=== PATIENT | male | born 1945 | race Two or more races ===

== ENCOUNTER 2022-02-23 11:47 | Emergency (ER) | payer OTHER ==
[~2022-02-23] VITALS: Ht 175.3 cm; Wt 62.6 kg
[2022-02-23] MEDS ORDERED: NORFLEX100MG PO (15:52)
[2022-02-23] MEDS ORDERED: KETO10TA2 PO (15:52)
== END 2022-02-23 15:58 | disposition home or self-care (01) ==
LOC: ER 11:47
DX: M25.551 Pain in right hip (principal)

== ENCOUNTER 2022-05-16 09:33 | Outpatient (CLI) | payer OTHER ==
[~2022-05-16 09:33] MED LIST: KETO10TA2 PO; NORFLEX100MG PO
== END 2022-05-16 09:34 | disposition home or self-care (01) ==
LOC: LAB 09:33
PROVIDERS: ATTEND Ophthalmology
DX: Z03.818 Encounter for observation for suspected exposure to other biological agents ruled out (principal); Z20.822 Contact with and (suspected) exposure to COVID-19; Z20.828 Contact with and (suspected) exposure to other viral communicable diseases

== ENCOUNTER 2022-06-29 08:02 | Outpatient (CLI) | payer OTHER | END 2022-06-29 08:03 | disposition home or self-care (01) | LOC: LAB 08:02 | PROVIDERS: ATTEND Ophthalmology | DX: Z20.818 Contact with and (suspected) exposure to other bacterial communicable diseases (principal); Z20.822 Contact with and (suspected) exposure to COVID-19 ==

== ENCOUNTER 2022-07-25 10:58 | Emergency (ER) | payer OTHER ==
[~2022-07-25] VITALS: Ht 175.3 cm; Wt 61.2 kg
== END 2022-07-25 13:31 | disposition home or self-care (01) ==
LOC: ER 10:58
DX: B34.8 Other viral infections of unspecified site (principal)

== ENCOUNTER 2022-08-04 07:16 | Outpatient (CLI) | payer OTHER | END 2022-08-04 15:35 | disposition home or self-care (01) | LOC: LAB 07:16 | PROVIDERS: ATTEND Ophthalmology | DX: Z03.818 Encounter for observation for suspected exposure to other biological agents ruled out (principal); Z20.822 Contact with and (suspected) exposure to COVID-19; Z20.828 Contact with and (suspected) exposure to other viral communicable diseases ==

== ENCOUNTER 2022-09-12 13:33 | Outpatient (CLI) | payer OTHER | END 2022-09-12 13:40 | disposition home or self-care (01) | LOC: LAB 13:33 | PROVIDERS: ATTEND Ophthalmology | DX: Z03.818 Encounter for observation for suspected exposure to other biological agents ruled out (principal); Z20.822 Contact with and (suspected) exposure to COVID-19 ==

== ENCOUNTER 2023-01-08 06:16 | Day surgery (SDC) | payer OTHER ==
[~2023-01-08] VITALS: Ht 175.3 cm; Wt 61.2 kg
== END 2023-01-08 13:35 | disposition home or self-care (01) ==
LOC: CIR.AMB 06:16
PROVIDERS: ATTEND Urology
DX: T83.192A Other mechanical complication of indwelling ureteral stent, initial encounter (principal); N13.39 Other hydronephrosis; Z20.822 Contact with and (suspected) exposure to COVID-19; Z88.0 Allergy status to penicillin; F17.210 Nicotine dependence, cigarettes, uncomplicated

== ENCOUNTER 2023-02-09 12:55 | Outpatient (CLI) | payer OTHER | END 2023-02-09 12:59 | disposition home or self-care (01) | LOC: NUCLEAR 12:55 | PROVIDERS: ATTEND Urology | DX: N13.1 Hydronephrosis with ureteral stricture, not elsewhere classified (principal) | CPT/HCPCS: 78708; A9539 ==

== ENCOUNTER → 2023-02-10 08:18 | Outpatient (CLI) | payer OTHER | END | disposition home or self-care (01) | LOC: LAB 08:18 | PROVIDERS: ATTEND Urology | DX: N30.00 Acute cystitis without hematuria (principal) ==

== ENCOUNTER 2023-03-15 07:19 | Outpatient (CLI) | payer OTHER | END 2023-03-15 07:41 | disposition home or self-care (01) | LOC: LAB 07:19 | PROVIDERS: ATTEND Urology | DX: N30.00 Acute cystitis without hematuria (principal) ==

== ENCOUNTER 2023-11-17 07:17 | Outpatient (CLI) | payer OTHER | END 2023-11-17 07:24 | disposition home or self-care (01) | LOC: TOM 07:17 | PROVIDERS: ATTEND Urology | DX: R31.0 Gross hematuria (principal) | CPT/HCPCS: 74177; Q9965 ==

== ENCOUNTER 2023-11-19 05:30 | Day surgery (SDC) | payer OTHER ==
[2023-11-16 13:28] LABS: HEMOGLOBIN 13.5 g/dL (13-16.00); MEAN CELL VOLUME 108.2 fL (80.0-100.00); MEAN CORPUSCULAR HEMOGLOBIN 36.4 pg (27.00-32.0); MEAN CORPUSCULAR HGB CONC 33.7 g/dl (32.0-36.0); PLATELET COUNT 190 K/uL (150-450); RED CELL DISTRIBUTION WIDTH 14.3 % (11.5-14.5)
[2023-11-16 13:36] LABS: PH,URINE 5.5 (5.0-8.0); URINE APPEARANCE Cloudy; URINE BILIRRUBIN Negative (NEGATIVE); URINE BLOOD Large; URINE COLOR Dark Yellow; URINE GLUCOSE Negative (NEGATIVE); URINE LEUKOCYTE Trace; URINE NITRATE Negative
[2023-11-16 13:38] LABS: URINE BACTERIA 18.8 uL (0.0-1933); URINE EPITHELIAL CELLS 3.8 uL (0.0-38.8); URINE RBC 215.2 uL (0.0-20.8); URINE WBC 23.4 uL (0.0-23.2)
[2023-11-16 13:56] LABS: CALCIUM 9.9 mg/dL (8.5-10.1); CREATININE SERUM 1.14 mg/dL (0.70-1.30); GFR 62.45; POTASSIUM 4.48 mEq/L (3.5-5.1)
[2023-11-16 13:59] LABS: URINE PROTEIN 100 (NEGATIVE)
[2023-11-16 14:26] LABS: INR 1.1; PARTIAL THROMBOPLASTIN TIME 28.9 SECONDS (22.0-34.0); PROTHROMBIN TIME 11.5 SECONDS (9.0-11.5)
== END 2023-11-19 12:10 | disposition home or self-care (01) ==
LOC: CIR.AMB 05:30
PROVIDERS: ATTEND Urology
DX: N13.0 Hydronephrosis with ureteropelvic junction obstruction (principal); Z88.0 Allergy status to penicillin; Z20.822 Contact with and (suspected) exposure to COVID-19

== ENCOUNTER 2023-12-14 12:38 | Emergency (ER) | payer OTHER ==
[~2023-12-14] VITALS: Ht 175.3 cm; Wt 59.0 kg
[2023-12-14 14:52] LABS: PH,URINE 6.5 (5.0-8.0); URINE APPEARANCE Clear; URINE BILIRRUBIN Negative (NEGATIVE); URINE BLOOD Moderate; URINE COLOR Yellow; URINE GLUCOSE Negative (NEGATIVE); URINE LEUKOCYTE Moderate; URINE NITRATE Negative; URINE PROTEIN 30 (NEGATIVE)
[2023-12-14 14:57] LABS: URINE BACTERIA 60.4 uL (0.0-1933); URINE EPITHELIAL CELLS 6.6 uL (0.0-38.8); URINE RBC 72.7 uL (0.0-20.8); URINE WBC 124.4 uL (0.0-23.2)
[2023-12-14 14:58] LABS: HEMOGLOBIN 12.7 g/dL (13-16.00); MEAN CELL VOLUME 107.3 fL (80.0-100.00); MEAN CORPUSCULAR HEMOGLOBIN 36.8 pg (27.00-32.0); MEAN CORPUSCULAR HGB CONC 34.3 g/dl (32.0-36.0); PLATELET COUNT 210 K/uL (150-450); RED BLOOD COUNT 3.45 M/uL (4.00-6.00); RED CELL DISTRIBUTION WIDTH 13.1 % (11.5-14.5)
[2023-12-14 15:20] LABS: ALBUMIN 2.9 gm/dL (3.4-5.0); BILIRUBIN TOTAL 0.49 mg/dL (0.3-1.2); CALCIUM 8.7 mg/dL (8.5-10.1); CREATININE SERUM 1.29 mg/dL (0.70-1.30); GFR 54.15; POTASSIUM 3.66 mEq/L (3.5-5.1); TOTAL PROTEIN 6.9 gm/dL (6.4-8.2)
== END 2023-12-14 17:47 | disposition home or self-care (01) ==
LOC: ER 12:38
PROVIDERS: General Practice
DX: N39.0 Urinary tract infection, site not specified (principal); R53.1 Weakness; J40 Bronchitis, not specified as acute or chronic; Z88.0 Allergy status to penicillin; Z20.822 Contact with and (suspected) exposure to COVID-19

== ENCOUNTER 2024-09-11 10:58 | Outpatient (CLI) | payer OTHER ==
[2024-09-11 12:27] LABS: CREATININE SERUM 1.19 mg/dL (0.70-1.30)
== END 2024-09-11 11:01 | disposition home or self-care (01) ==
LOC: LAB 10:58
PROVIDERS: ATTEND Radiology Diagnostic Radiology
DX: N30.00 Acute cystitis without hematuria (principal)

== ENCOUNTER → 2024-09-12 07:05 | Outpatient (CLI) | payer OTHER ==
[2024-09-12 07:51] LABS: URINE BACTERIA 246.9 uL (0.0-1933); URINE EPITHELIAL CELLS 2.4 uL (0.0-38.8); URINE RBC 8.3 uL (0.0-20.8); URINE WBC 1133.8 uL (0.0-23.2)
[2024-09-12 07:59] LABS: PH,URINE 5.5 (5.0-8.0); URINE APPEARANCE Clear; URINE BILIRRUBIN Negative (NEGATIVE); URINE BLOOD Small; URINE COLOR Yellow; URINE GLUCOSE Negative (NEGATIVE); URINE KETONE Trace (NEGATIVE); URINE LEUKOCYTE Moderate; URINE NITRATE Negative; URINE PROTEIN 30 (NEGATIVE)
[2024-09-12 08:01] LABS: URINE CAST 0.15 uL (0.0-1.40)
[2024-09-12 08:28] LABS: CALCIUM 9.5 mg/dL (8.5-10.1); CREATININE SERUM 1.22 mg/dL (0.70-1.30); GFR 57.6; POTASSIUM 4.37 mEq/L (3.5-5.1); PROSTATIC SPECIFIC ANTIGEN 1.68 NG/ML (0.010-4.00)
== END | disposition home or self-care (01) ==
LOC: LAB 07:05
PROVIDERS: ATTEND Urology
DX: R31.1 Benign essential microscopic hematuria (principal); N30.00 Acute cystitis without hematuria; R97.20 Elevated prostate specific antigen [PSA]

== ENCOUNTER 2024-09-12 07:43 | Outpatient (CLI) | payer OTHER | END 2024-09-12 08:04 | disposition home or self-care (01) | LOC: RAD 07:43 | PROVIDERS: ATTEND Urology | DX: R91.1 Solitary pulmonary nodule (principal); L04.0 Acute lymphadenitis of face, head and neck; H53.2 Diplopia; N31.1 Reflex neuropathic bladder, not elsewhere classified; N20.0 Calculus of kidney ==

== ENCOUNTER 2024-10-02 13:58 | Emergency (ER) | payer OTHER ==
[~2024-10-02] VITALS: Ht 175.3 cm; Wt 63.5 kg
[2024-10-02 18:28] LABS: PH,URINE 5.5 (5.0-8.0); URINE APPEARANCE Clear; URINE BILIRRUBIN Negative (NEGATIVE); URINE BLOOD Trace; URINE COLOR Yellow; URINE GLUCOSE Negative (NEGATIVE); URINE KETONE 15 (NEGATIVE); URINE LEUKOCYTE Small; URINE NITRATE Negative
[2024-10-02 18:32] LABS: URINE BACTERIA 729.5 uL (0.0-1933); URINE EPITHELIAL CELLS 10.3 uL (0.0-38.8); URINE RBC 4.5 uL (0.0-20.8); URINE WBC 302.3 uL (0.0-23.2)
[2024-10-02 18:33] LABS: URINE CAST 0.91 uL (0.0-1.40); URINE PROTEIN 100 (NEGATIVE)
[2024-10-02 19:07] LABS: HEMATOCRIT 38.4 % (39.0-48.0); HEMOGLOBIN 13.2 g/dL (13-16.00); MEAN CELL VOLUME 105.1 fL (80.0-100.00); MEAN CORPUSCULAR HEMOGLOBIN 36.1 pg (27.00-32.0); MEAN CORPUSCULAR HGB CONC 34.4 g/dl (32.0-36.0); PLATELET COUNT 206 K/uL (150-450); RED BLOOD COUNT 3.66 M/uL (4.00-6.00); RED CELL DISTRIBUTION WIDTH 13.3 % (11.5-14.5)
[2024-10-02 19:21] LABS: ALBUMIN 3.6 gm/dL (3.4-5.0); BILIRUBIN TOTAL 0.58 mg/dL (0.3-1.2); CALCIUM 9.5 mg/dL (8.5-10.1); CREATININE SERUM 1.26 mg/dL (0.70-1.30); GFR 55.49; POTASSIUM 3.66 mEq/L (3.5-5.1); TOTAL PROTEIN 7.6 gm/dL (6.4-8.2)
[2024-10-02 19:46] LABS: D DIMER 1.19 MG/L; INR 1.15; PARTIAL THROMBOPLASTIN TIME 24.3 SECONDS (22.0-34.0); PROTHROMBIN TIME 12.4 SECONDS (9.0-11.5)
[2024-10-02] MEDS ORDERED: ELIQUIS2.5 MG PO (20:18)
== END 2024-10-02 21:26 | disposition home or self-care (01) ==
LOC: ER 14:00
PROVIDERS: General Practice
DX: R55 Syncope and collapse (principal); Z88.0 Allergy status to penicillin; D32.9 Benign neoplasm of meninges, unspecified

== ENCOUNTER 2024-10-19 10:24 | Outpatient (CLI) | payer OTHER ==
[~2024-10-19 10:24] MED LIST changes: +ELIQUIS2.5 MG PO
== END 2024-10-19 10:27 | disposition home or self-care (01) ==
LOC: SONOGRAMA 10:24
PROVIDERS: ATTEND Pathology Anatomic Pathology & Clinical Pathology
DX: C96.9 Malignant neoplasm of lymphoid, hematopoietic and related tissue, unspecified (principal); L04.0 Acute lymphadenitis of face, head and neck

== ENCOUNTER 2024-11-16 07:17 | Outpatient (CLI) | payer OTHER | END 2024-11-16 07:18 | disposition home or self-care (01) | LOC: NUCLEAR 07:17 | PROVIDERS: ATTEND Internal Medicine Hematology & Oncology | DX: C80.1 Malignant (primary) neoplasm, unspecified (principal); C77.0 Secondary and unspecified malignant neoplasm of lymph nodes of head, face and neck | CPT/HCPCS: 78815; A9552 ==

== ENCOUNTER 2024-12-27 18:58 | Inpatient (IN) | payer OTHER ==
[~2024-12-27] VITALS: Ht 172.7 cm; Wt 54.4 kg
--- NOTE | 2024-12-27 19:15 | NUR ---
PTE ALERTA Y ORIENTADO X 3 ESFERAS EN AMBULANCIA QUIEN REFIERE VOMITOS,POCO APETITO Y DOLOR ABDOMINAL POR MASASA EN ABDOMEN.PTE SIENDO EVALUADO POR ONCOLOGIA.
[2024-12-27] MEDS ORDERED: ONDANSETRON HCL 2 MG/ML VIAL IV ONE (20:30)
[2024-12-27] MEDS ORDERED: FAMOtidine 10 MG/ML (4ML VIAL) IV ONE (20:30)
[2024-12-27] MEDS ORDERED: 0.9 % SODIUM CHLORIDE 1,000 ML IV ONE (20:30)
[2024-12-27] MEDS ORDERED: FAMOTIDINE/PF 20 MG/2 ML VIAL ONE (20:32)
[2024-12-27] MEDS ORDERED: ONDANSETRON HCL 2 MG/ML VIAL ONE (20:32)
--- NOTE | 2024-12-27 20:51 | NUR ---
SE ORIENTA PTE SOBRE TX MEDICO EL CUAL REFIERE ENTENDER.SE LE EXTRAEN MUESTRAS BAJO MEDIDAS ASEPTICAS,SE ADMINISTRAN MEDICAMENTOS CARLA ORDEN MEDICA.SE NOTIFICA CT PENDIENTE.
[2024-12-27 21:00] LABS: HEMATOCRIT 33.1 % (39.0-48.0); HEMOGLOBIN 11.1 g/dL (13-16.00); MEAN CORPUSCULAR HEMOGLOBIN 34.9 pg (27.00-32.0); MEAN CORPUSCULAR HGB CONC 33.5 g/dl (32.0-36.0); PLATELET COUNT 204 K/uL (150-450); RED BLOOD COUNT 3.18 M/uL (4.00-6.00); RED CELL DISTRIBUTION WIDTH 13.5 % (11.5-14.5)
[2024-12-27 21:11] LABS: ALBUMIN 2.7 gm/dL (3.4-5.0); BILIRUBIN TOTAL 0.6 mg/dL (0.3-1.2); CALCIUM 7.9 mg/dL (8.5-10.1); CREATININE SERUM 1.06 mg/dL (0.70-1.30); GFR 67.74; GLOBULINA 3.1 G/DL (2.4-3.5); POTASSIUM 3.67 mEq/L (3.5-5.1); TOTAL PROTEIN 5.8 gm/dL (6.4-8.2)
[2024-12-27 21:18] LABS: INR 1.26; PARTIAL THROMBOPLASTIN TIME 29.7 SECONDS (22.0-34.0); PROTHROMBIN TIME 13.5 SECONDS (9.0-11.5)
--- NOTE | 2024-12-27 23:00 | NUR ---
SE RECIBE PTE ALERTA ORIENTADA X3.VENOPUNCION PATENTE POOL DE EDEMA Y ERITEMA RECIBIENDO 0.9 NSS BAJANDO A 60ML/HR.PENDIENTE CT Y CONSULTA MEDICA CON .
[2024-12-28 00:57] LABS: URINE BACTERIA 12.2 uL (0.0-1933); URINE CAST 6.48 uL (0.0-1.40); URINE EPITHELIAL CELLS 12.9 uL (0.0-38.8); URINE RBC 3.6 uL (0.0-20.8); URINE WBC 8.3 uL (0.0-23.2)
[2024-12-28 01:11] LABS: URINE APPEARANCE Clear; URINE BILIRRUBIN Moderate (NEGATIVE); URINE BLOOD Negative; URINE COLOR Dark Yellow; URINE GLUCOSE Negative (NEGATIVE); URINE KETONE 15 (NEGATIVE); URINE LEUKOCYTE Negative; URINE NITRATE Negative
[2024-12-28 03:00] LABS: URINE CRYSTALS FEW /HPF; URINE MUCUS MODERATE; URINE PROTEIN 100 (NEGATIVE)
[2024-12-28] MEDS ORDERED: PANTOPRAZOLE SODIUM 40 MG in 0.9 % SODIUM CHLORIDE 8 ML IV PUSH SCH (11:48)
[2024-12-28] MEDS ORDERED: MEPERIDINE HCL/PF 50 MG/ML VIAL IM PRN (12:00)
[2024-12-28] MEDS ORDERED: 0.9 % SODIUM CHLORIDE 1,000 ML IV SCH (12:15)
[2024-12-28] MEDS ORDERED: ACETAMINOPHEN 325 MG TABLET PO PRN (12:15)
[2024-12-28 13:10] LABS: BILIRUBIN TOTAL 0.63 mg/dL (0.3-1.2); BILIRUBIN,CONJUGATED 0.2 mg/dL (0.0-0.2); BILIRUBIN,UNCONJUGATED 0.43 mg/dL (0.0-0.6); TOTAL PROTEIN 6.5 gm/dL (6.4-8.2)
[2024-12-28 13:20] LABS: C-REACTIVE PROTEIN 1.24 MG/DL (0.00-0.29)
[2024-12-28 18:22] VITALS: BP 180/80
[2024-12-28] MEDS ORDERED: ACETAMINOPHEN 500 MG GEL..CAP PO PRN (18:45)
[2024-12-28 18:52] VITALS: BP 150/69; O2SAT 100
[2024-12-29 01:40] VITALS: BP 162/98
[2024-12-29 06:36] LABS: HEMATOCRIT 37.1 % (39.0-48.0); HEMOGLOBIN 12.5 g/dL (13-16.00); MEAN CELL VOLUME 103.3 fL (80.0-100.00); MEAN CORPUSCULAR HEMOGLOBIN 34.7 pg (27.00-32.0); MEAN CORPUSCULAR HGB CONC 33.6 g/dl (32.0-36.0); PLATELET COUNT 218 K/uL (150-450); RED BLOOD COUNT 3.59 M/uL (4.00-6.00); RED CELL DISTRIBUTION WIDTH 13.3 % (11.5-14.5)
[2024-12-29 06:56] LABS: ALBUMIN 3.1 gm/dL (3.4-5.0); BILIRUBIN TOTAL 0.92 mg/dL (0.3-1.2); CALCIUM 9.5 mg/dL (8.5-10.1); CREATININE SERUM 1.06 mg/dL (0.70-1.30); GFR 67.74; GLOBULINA 3.2 G/DL (2.4-3.5); POTASSIUM 4.44 mEq/L (3.5-5.1); TOTAL PROTEIN 6.3 gm/dL (6.4-8.2)
[2024-12-29 07:07] LABS: C-REACTIVE PROTEIN 1.22 MG/DL (0.00-0.29)
[2024-12-29 08:28] VITALS: BP 144/81
[2024-12-29 17:02] VITALS: BP 132/82
[2024-12-30 02:19] VITALS: BP 149/90; O2SAT 97
[2024-12-30 08:55] VITALS: BP 159/96
[2024-12-30 17:40] VITALS: BP 159/100; O2SAT 96
[2024-12-31 01:22] VITALS: BP 140/88; O2SAT 97
[2024-12-31 09:34] VITALS: BP 151/90
[2024-12-31] MEDS ORDERED: LACTULOSE 20 G/30 ML BLIST.PACK PO NR (17:00)
[2024-12-31 17:28] VITALS: BP 125/85; O2SAT 95
[2025-01-01 00:31] VITALS: BP 141/98; O2SAT 97
[2025-01-01 08:50] VITALS: BP 122/76
== END 2025-01-01 13:05 | disposition home or self-care (01) | DRG 389 ==
LOC: ER 18:58 → MEDJ 12-28 12:43
PROVIDERS: General Practice; ADMIT Internal Medicine; ATTEND Internal Medicine
PROC: BW21YZZ Computerized Tomography (CT Scan) of Abdomen and Pelvis using Other Contrast (ICD-10-PCS; principal; 2024-12-27)
DX: K56.609 Unspecified intestinal obstruction, unspecified as to partial versus complete obstruction (principal); C77.0 Secondary and unspecified malignant neoplasm of lymph nodes of head, face and neck; C78.6 Secondary malignant neoplasm of retroperitoneum and peritoneum; E46 Unspecified protein-calorie malnutrition; E86.0 Dehydration; Z88.0 Allergy status to penicillin